=== PATIENT | female | born 1960 | race Caucasian/White ===

== ENCOUNTER 2023-01-11 14:10 | Emergency (ER) | payer OTHER, SELFPAY ==
[2023-01-11 14:12] VITALS: BP 153/88; PULSE 102; RESP 16; TEMP 36.8; O2SAT 98; BMI 19.9
--- NOTE | 2023-01-11 14:16 | EDS_ITS ---
HPI History of Present Illness Chief Complaint: Weakness PFSH PFSH Allergy/AdvReac Type Severity Reaction Status Date / Time No Known Allergies Allergy Verified 01/11/23 15:15 Social History Smoking Status: Never smoker EXAM Physical Exam Const Vital Signs: 01/11/23 14:12 01/11/23 14:16 Temperature 98.3 F Temperature Source Oral Pulse Rate 102 H Respiratory Rate 16 Respiratory Pattern Normal Blood Pressure 153/88 H Blood Pressure Mean 109 Pulse Ox 98 Oxygen Delivery Method Room Air [facility] Narrative Medical decision making narrative: HISTORY OF PRESENT ILLNESS: 62-year-old female here with increased weakness. Per the patient this been ongoing for last 3 to 4 months. She further states she has been diffusely weak. Denies focal weakness. Denies headache. Denies vomiting. Denies chest pain. Denies shortness of breath. Denies abdominal pain. Does note vaginal discharge since 2006. Denies any vaginal bleeding. Denies any excessive urination. Denies any fevers. REVIEW OF SYSTEMS: Pertinent positives: Diffuse weakness Pertinent negatives: Focal weakness, fever, syncope, chest pain PHYSICAL EXAM: Nursing triage notes reviewed, Vital signs reviewed Constitutional: please see mdm HENT: MMM Eyes: Pupils equal round and reactive to light, Extraocular muscles intact Neck: No stridor, no JVD, full neck ROM Lungs: Clear to auscultation, No wheezing or rales. No increased work of breathing, no conversational dyspnea, no accessory muscle use, no nasal flaring. No respiratory distress noted Heart: Regular rate and rhythm, No murmurs, No rubs and No gallops, 2+ distal pulses (radial, femoral, posterior tibial) in all extremities Abdomen: Soft, there is no tenderness, rigidity, rebound or guarding, no obvious peritoneal signs, no palpable pulsatile abdominal masses, no auscultated abdominal bruit : No CVAT Extremities: No edema Neuro: No focal neurological deficits, cranial nerves II through XII intact, 5/5 strength in all extremities. Intact sensation to light touch in all extremities, 2+ reflexes bilateral patella tendons. Normal gait. No ataxia. Skin: No rash or lesions noted MEDICAL DECISION MAKING: Chief Complaint: Diffuse weakness External records reviewed: No recent ED visits Factors affecting care: Type 2 diabetes, hyperlipidemia Social determinants of health: none History obtained from others: none Consults: none ALL IMAGES (IF OBTAINED) HAVE BEEN PERSONALLY REVIEWED AND INTERPRETED BY MYSELF. EKG with normal sinus rhythm, normal axis, normal intervals, no STEMI MDM Narrative: Patient was hemodynamically stable, afebrile, nontoxic-appearing. There are no focal neurologic deficits on my initial exam. No focal cardiopulmonary abnormalities. No focus of infection. I considered the following differential diagnosis: Dehydration, anemia, arrhythmia, ACS, electrolyte disturbance, R[place], UTI, pneumonia, malignancy I obtained a broad lab and imaging work-up to further elucidate the etiology of the patient's complaints. Initial EKG was nonischemic, not arrhythmogenic. Labs without evidence of UTI. TSH within normal limits. Patient signed out to p.m. physician pending lab and imaging evaluation and disposition. The patient and/or family, caregivers express understanding. The patient and/or family, caregivers agrees with the plan. Shared decision making: I will have a discussion with the patient and or visitors regarding risk/benefits of further testing or admission. They will be made aware of of the risk/benefits inherent in this decision they will be given the opportunity to voice understanding. Total critical care time today provided was at least 0 [] minutes. This excludes separately billable procedures. Critical care time (if documented) is secondary to the patient having high probability of clinically significant/life threatening deterioration in the patient's condition which required my urgent intervention. Lab Data Attestation: I reviewed the patient's lab results. Lab results narrative: CBC without leukocytosis, severe anemia, no thrombocytopenia. Urinalysis shows no evidence of urinary inflammation suggestive of UTI TSH within normal limits Labs: Laboratory Results - last 24 hr 01/11/23 01/11/23 14:16 14:52 WBC 8.2 RBC 5.43 H Hgb 15.6 H Hct 47.8 H MCV 88.0 MCH 28.7 MCHC 32.6 RDW Std Deviation 41.6 RDW Coeff of [place] 12.9 Plt Count 311 MPV 11.2 Immature Gran % (Auto) 0.200 Neut % (Auto) 73.1 H Lymph % (Auto) 17.6 L [place] % (Auto) 8.3 Eos % (Auto) 0.1 Baso % (Auto) 0.7 Absolute Neuts (auto) 6.0 Absolute Lymphs (auto) 1.44 Nucleated RBC % 0 TSH 0.88 Urine Color Yellow Urine Clarity Clear Urine pH 6.0 Ur Specific [place] 1.015 Urine Protein 15 H Urine Glucose (UA) Normal Urine Ketones 15 H Urine Occult Blood Negative Urine Nitrite Negative Urine Bilirubin Negative Urine Urobilinogen Normal Ur Leukocyte Esterase 100 H Discharge Plan Triage Chief Complaint: Weakness ED Provider: Rambo Nobles Dx/Rx/DC Orders Primary Care Provider: Emilio Waddell Referrals: Emilio Waddell MD [Primary Care Provider] -
--- NOTE | 2023-01-11 14:30 | EKG12_ITS ---
Test Reason : GENERAL WEAKNESS Blood Pressure : / mmHG Vent. Rate : 100 BPM Atrial Rate : 100 BPM P-R Int : 134 ms QRS Dur : 078 ms QT Int : 350 ms P-R-T Axes : 087 068 069 degrees QTc Int : 451 ms Normal sinus rhythm Right atrial enlargement Borderline ECG No previous ECGs available Confirmed by SAVAGE LINO, MATHEUS ([id number]), research editor FLO HOOVER ([id number]) on 01/17/2023 7:31:44 AM Referred By: Confirmed By:MATHEUS WAN MD
--- NOTE | 2023-01-11 14:30 | CT_ITS ---
STUDY: CT Abdomen And Pelvis W/O Contrast Injection 01/11/2023 4:16 PM REASON FOR EXAM: Female, 62 years old. Abdominal pain Pain Individualized dose optimization techniques were used for this CT. COMPARISON: None. TECHNIQUE: CT Abdomen And Pelvis W/O Contrast Injection FINDINGS: There are atherosclerotic calcifications of visualized coronary arteries. The visualized portions of the heart are within normal limits. Normal liver. Normal gallbladder and extrahepatic biliary system. Normal spleen. Normal pancreas. Normal bilateral adrenal glands. Non obstructive 2 mm right renal parenchymal stones. Scarring of the right kidney. Moderate left hydronephroureter. Inflammation is seen around the kidney and ureter. An obstructing calcified stone is not identified. This would suggest passage of a stone or infectious process of the kidney. Normal visualized stomach. Normal small intestine. There are multiple colonic diverticula consistent with diverticulosis. There is non-visualization of the appendix. There are calcifications of the abdominal aorta. This is consistent for atherosclerotic disease. There is NO abdominal aortic aneurysm. Vascular workup can be obtained based on clinical correlation. Normal inferior vena cava. Subcentimeter mesenteric lymph nodes. Normal urinary bladder. There is atrophy of the uterus. Normal abdominal wall. Normal osseous structures.
--- NOTE | 2023-01-11 14:36 | NURSING ---
NO OLD EKGS
[2023-01-11 14:51] LABS: Absolute Lymphocyte Count 1.44 X10^3/uL (0.83-4.51); Basophil# 0.06 X10^3/uL; Basophil% 0.7 % (0-1); Eosinophil# 0.01 X10^3/uL; Eosinophils% 0.1 % (0-5); Hematocrit 47.8 % (37-47); Hemoglobin 15.6 g/dL (12.0-15.0); Lymphocyte # 1.44 X10^3/ul (0.83-4.51); Lymphocyte % 17.6 % (19-41); Mean Corp Hgb Conc 32.6 g/dL (32-36); Mean Corpuscular Hgb 28.7 pg (27.0-32.0); Mean Platelet Vol. 11.2 fl (6.2-12.0); Monocyte# 0.68 X10^3/uL; Monocyte% 8.3 % (0-10); NRBC Flagged by Analyzer 0 % (0-5); Neutrophil # 5.96 X10^3/uL (2.7-7.7); Neutrophil % 73.1 % (47-70); Platelet Count 311 K/mm3 (150-450); RBC Distribution Width CV 12.9 % (11.6-14.6); RBC Distribution Width SD 41.6 fl (35.1-43.9); Red Blood Count 5.43 M/mm3 (4.2-5.4); White Blood Count 8.2 K/mm3 (4.4-11.0)
[2023-01-11 14:59] LABS: Mucous, Urine 0 SEEN /hpf (<or=2+); Red Blood Cells-Urine 0 SEEN /hpf (0-5); Squamous Epithelial Cells - UA 0 SEEN /hpf (5-10)
[2023-01-11] MEDS: 0.9% Normal Saline 1,000 ML 1000 ML IV (15:15)
[2023-01-11 15:26] LABS: Color, Urine Yellow (Yellow); Glucose, Dipstick Normal (Normal); Ketone-Dipstick 15 mg/dl (Negative); Leukocyte Esterase-Dipstick 100 /ul (Negative); Nitrite-Dipstick Negative (Negative); Occult Blood-Urine Negative /ul (Negative); Protein-Dipstick 15 mg/dl (Negative); Specific Gravity, Urine 1.015 (1.002-1.030); Urine Bilirubin Dipstick Negative (Negative); Urine Clarity Clear (Clear); Urine Urobilinogen Normal (Normal)
[2023-01-11 15:40] LABS: Thyroid Stim Hormone (TSH) 0.88 uIU/mL (0.358-3.74)
--- NOTE | 2023-01-11 15:45 | RAD_ITS ---
STUDY: XR Chest 2 Views 01/11/2023 3:45 PM REASON FOR EXAM: Female, 62 years old. CHEST PAIN weakness COMPARISON: None TECHNIQUE: XR Chest 2 Views FINDINGS: There is no demonstrated pleural abnormality. Normal heart size. Normal mediastinum. Normal skyler. Prominent appearing increased interstitial lung markings. Normal visualized pulmonary arteries. There is atherosclerotic calcification of the aortic arch with tortuosity. There are diffuse degenerative changes of the visualized thoracic spine. There is degenerative osteoarthritis of the bilateral shoulders. There is no demonstrated abnormality of the visualized soft tissue structures of the upper abdomen. RAD/Chest PA and Lateral IMPRESSION: There are no acute findings. Electronically Signed: Austen Terrazas MD at 16:19 EDT ,
[2023-01-11 15:52] LABS: Bacteria 1+ /hpf (None Seen); White Blood Cells 5-10 SEEN /hpf (0-5)
[2023-01-11 16:04] LABS: BUN 10 mg/dL (7-18); Creatinine, Serum 0.91 mg/dL (0.55-1.02); EST Glomerular Filtration Rate 66 mL/min (>60); Est Glom Filt Rate - Afr Amer 80 mL/min (>60); Estimated Creatinine Clearance 57.74 ml/min; Glucose 123 mg/dL (74-106); Protein, Total 8.8 g/dL (6.4-8.2)
[2023-01-11 16:05] LABS: AST(SGOT) 11 U/L (15-37); Alanine Aminotransfer ALT/SGPT 14 U/L (13-56); Albumin, Serum 4.4 g/dL (3.2-5.0); Alkaline Phosphatase 65 U/L (45-117); Anion Gap 8 (5-15); Calcium,Total 9.8 mg/dL (8.5-10.1); Chloride 100 mmol/L (98-107); Globulin 4.4 g/dL (2.2-4.2); Lipase 20 U/L (13-75); Potassium 3.8 mmol/L (3.5-5.1); Sodium Level 136 mmol/L (136-145); Troponin-I HS 6 pg/mL (3.0-54.0)
[2023-01-11 16:18] VITALS: BP 133/65; PULSE 70; RESP 16; O2SAT 98
[2023-01-11] MEDS: Ceftriaxone 1 GM/50 ML BAG IV (16:55)
== END 2023-01-11 17:20 | disposition home or self-care (01) ==
PROVIDERS: Emergency Medicine; Emergency Provider Emergency Medicine; PCP Family Medicine; Visit Provider Emergency Medicine
DX: R53.1 Weakness (principal); E11.9 Type 2 diabetes mellitus without complications; E78.5 Hyperlipidemia, unspecified
CPT/HCPCS: 71046; 74176; 80053; 81001; 83690; 84443; 84484; 85025; 93005; 96361; 96365; 99284; J7030; A4216

== ENCOUNTER 2023-01-14 10:34 | Emergency (ER) | payer SELFPAY ==
[2023-01-14 10:37] VITALS: BP 154/97; PULSE 105; RESP 16; TEMP 36.2; O2SAT 94; BMI 18.4
--- NOTE | 2023-01-14 11:11 | EDS_ITS ---
HPI History of Present Illness Chief Complaint: Weakness Narrative Narrative: 62-year-old female presenting for generalized weakness. She states that she has a creepy crawly feeling all over her body. She states has had this for some time. She does state that she was seen previously for this in the ER 01/11/2023 where she was told she has a UTI and some kind of inflammation on her CAT scan. She states that she is feeling weaker. She states he is having trouble walking due to the weakness. She states he has increased appetite but does not have nausea or vomiting. No diarrhea. She states that there are bubbles in her urine when she urinates. 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 She denies have any fevers. PFSH PFSH Home Medications cefdinir 300 mg capsule 300 mg PO BID #20 caps 01/11/23 [Rx Last Taken Unknown] Allergy/AdvReac Type Severity Reaction Status Date / Time No Known Allergies Allergy Verified 01/14/23 10:36 Social History Smoking Status: Never smoker ROS ROS ED Constitutional Constitutional ED: Denies chills or fever(s) Eyes Eyes: Denies change in vision or diplopia ENT ENT ED: Denies rhinorrhea or sore throat Cardiovascular Cardiovascular: Denies chest pain or palpitations Respiratory/Chest Respiratory/Chest: Denies cough or dyspnea Gastrointestinal Gastrointestinal: Denies abdominal pain or nausea Genitourinary Genitourinary ED: Denies dysuria Musculoskeletal Musculoskeletal: Denies arthralgias or myalgias Integumentary Denies abscess Neurologic Neurologic: Denies headache(s) or paresthesias Psychiatric Psychiatric: Denies anxiety or depression EXAM Physical Exam Const Vital Signs: 01/14/23 10:37 01/14/23 13:14 01/14/23 11:19 Temperature 97.1 F L Temperature Source Temporal Pulse Rate 105 H 95 90 Respiratory Rate 16 12 16 Blood Pressure 154/97 H 125/76 H 126/86 H Blood Pressure Mean 116 92 99 Pulse Ox 94 99 100 Oxygen Delivery Method Room Air Room Air Room Air Positive well nourished General Appearance ED: NAD HEENT Reports moist mucous membranes Eyes PERRL and EOMs intact bilaterally Resp normal respiratory effort Auscultation: Negative for rales, rhonchi or wheezes Cardio regular rate and regular rhythm GI normal to inspection, nondistended, normoactive bowel sounds Neuro oriented x3 and CN's II-XII intact bilaterally Sensorium / Orientation: alert Psych mental status grossly normal Skin no rashes or lesions noted MDM MDM MDM Narrative Medical decision making narrative: 62-year-old female presented with weakness. She had a cardiac work-up this as well as a CT of the abdomen pelvis which showed some inflammation of the ureter. Has been treated for UTI although she states her only symptoms of UTI would be bubbles in the urine when she urinates. She denies fevers. She states that she has a crawling feeling all over her body but cannot explain it any more than that. Vital signs are stable she is afebrile. Did obtain CBC to assess white blood cell count, hemoglobin, platelets to see if there is any changes. Also obtained a CMP for the same reason. These are unremarkable and not significantly changed. Repeat urinalysis is negative. The patient initially said I do not; like this, but I explained to her that her blood work is all normal she would need mission criteria. I did offer her admission for placement if she needed but she states she does not have any insurance anymore she does not want to do that either. After her family arrived they did mention that the patient was not eating very well. She states that she just does not have an appetite. She states that when she does eat she does feel better. She also now reported to me that she has been drinking apple cider vinegar and holding her metformin because somebody told her this was good for her. I recommended that she discontinue doing this and go back on her metformin as well as eat a normal healthy diet. She is understanding. Return precautions were discussed. Impression: 1. Weakness Lab Data Labs: Laboratory Results - last 24 hr 01/14/23 01/14/23 11:20 11:23 WBC 7.2 RBC 5.05 Hgb 14.7 Hct 43.6 MCV 86.3 MCH 29.1 MCHC 33.7 RDW Std Deviation 41.1 RDW Coeff of [place] 13.0 Plt Count 278 MPV 10.9 Immature Gran % (Auto) 0.300 Neut % (Auto) 77.0 H Lymph % (Auto) 14.2 L [place] % (Auto) 7.8 Eos % (Auto) 0.1 Baso % (Auto) 0.6 Absolute Neuts (auto) 5.6 Absolute Lymphs (auto) 1.02 Nucleated RBC % 0 Sodium 135 L Potassium 4.1 Chloride 102 Carbon Dioxide 28.0 Anion Gap 5 BUN 12 Creatinine 0.93 Estim Creat Clear Calc 52.32 Est GFR (MDRD) Af Amer 78 Est GFR (MDRD) Non-Af 65 BUN/Creatinine Ratio 12.9 Glucose 148 H Calcium 9.9 Total Bilirubin 0.50 AST 12 L ALT 15 Alkaline Phosphatase 59 Total Protein 8.2 Albumin 4.2 Globulin 4.0 Albumin/Globulin Ratio 1.0 Urine Color Yellow Urine Clarity Clear Urine pH 6.[address] [place] 1.010 Urine Protein Negative Urine Glucose (UA) Normal Urine Ketones 5 H Urine Occult Blood Negative Urine Nitrite Negative Urine Bilirubin Negative Urine Urobilinogen Normal Ur Leukocyte Esterase Negative Urine RBC 0 SEEN Urine WBC 0 SEEN Ur Squamous Epith Cells 0 SEEN Urine Bacteria 0 SEEN Urine Mucus 0 SEEN Discharge Plan Triage Chief Complaint: Weakness ED Provider: Lizandro Guevara Dx/Rx/DC Orders Instructions: ED Weakness (Uncertain Cause) Prescriptions: No Action cefdinir 300 mg capsule 300 mg PO BID Qty: 20 0RF Primary Care Provider: Emilio Waddell Referrals: Emilio Waddell MD [Primary Care Provider] - Disposition Disposition: Home, Self Care Discharge Date/Time: 01/14/23 13:35
[2023-01-14] MEDS: 0.9% Normal Saline 1,000 ML 999 ML IV (11:18)
[2023-01-14 11:19] VITALS: BP 126/86; PULSE 90; RESP 16; O2SAT 100
[2023-01-14 11:30] LABS: Absolute Lymphocyte Count 1.02 X10^3/uL (0.83-4.51); Absolute Neutrophil Count 5.6 X10^3/uL (2.0-7.7); Basophil# 0.04 X10^3/uL; Basophil% 0.6 % (0-1); Eosinophil# 0.01 X10^3/uL; Eosinophils% 0.1 % (0-5); Hematocrit 43.6 % (37-47); Hemoglobin 14.7 g/dL (12.0-15.0); Lymphocyte # 1.02 X10^3/ul (0.83-4.51); Lymphocyte % 14.2 % (19-41); Mean Corp Hgb Conc 33.7 g/dL (32-36); Mean Corpuscular Hgb 29.1 pg (27.0-32.0); Mean Corpuscular Volume 86.3 fL (81-99); Mean Platelet Vol. 10.9 fl (6.2-12.0); Monocyte# 0.56 X10^3/uL; Monocyte% 7.8 % (0-10); NRBC Flagged by Analyzer 0 % (0-5); Neutrophil # 5.55 X10^3/uL (2.7-7.7); Platelet Count 278 K/mm3 (150-450); RBC Distribution Width SD 41.1 fl (35.1-43.9); Red Blood Count 5.05 M/mm3 (4.2-5.4); White Blood Count 7.2 K/mm3 (4.4-11.0)
[2023-01-14 11:44] LABS: AST(SGOT) 12 U/L (15-37); Alanine Aminotransfer ALT/SGPT 15 U/L (13-56); Albumin, Serum 4.2 g/dL (3.2-5.0); Alkaline Phosphatase 59 U/L (45-117); Anion Gap 5 (5-15); BUN 12 mg/dL (7-18); BUN/Creat Ratio 12.9 RATIO (10-20); Calcium,Total 9.9 mg/dL (8.5-10.1); Chloride 102 mmol/L (98-107); Creatinine, Serum 0.93 mg/dL (0.55-1.02); EST Glomerular Filtration Rate 65 mL/min (>60); Est Glom Filt Rate - Afr Amer 78 mL/min (>60); Estimated Creatinine Clearance 52.32 ml/min; Glucose 148 mg/dL (74-106); Potassium 4.1 mmol/L (3.5-5.1); Protein, Total 8.2 g/dL (6.4-8.2); Sodium Level 135 mmol/L (136-145)
[2023-01-14 12:21] LABS: Bacteria 0 SEEN /hpf (None Seen); Mucous, Urine 0 SEEN /hpf (<or=2+); Red Blood Cells-Urine 0 SEEN /hpf (0-5); Squamous Epithelial Cells - UA 0 SEEN /hpf (5-10); White Blood Cells 0 SEEN /hpf (0-5)
[2023-01-14 12:30] LABS: Color, Urine Yellow (Yellow); Glucose, Dipstick Normal (Normal); Ketone-Dipstick 5 mg/dl (Negative); Leukocyte Esterase-Dipstick Negative /ul (Negative); Nitrite-Dipstick Negative (Negative); Occult Blood-Urine Negative /ul (Negative); Protein-Dipstick Negative (Negative); Urine Bilirubin Dipstick Negative (Negative); Urine Clarity Clear (Clear); Urine Urobilinogen Normal (Normal)
[2023-01-14 13:01] VITALS: O2SAT 96
[2023-01-14 13:14] VITALS: BP 125/76; PULSE 95; RESP 12; O2SAT 99
--- NOTE | 2023-01-14 13:28 | ED.RN ---
IV removed intact, no bleeding at site. Verbalized understanding of instructions.
== END 2023-01-14 13:35 | disposition home or self-care (01) ==
PROVIDERS: Emergency Provider Student in an Organized Health Care Education/Training Program; PCP Family Medicine; Visit Provider Student in an Organized Health Care Education/Training Program
DX: R53.1 Weakness (principal)
CPT/HCPCS: 80053; 81001; 85025; 96360; 99283; J7030